=== PATIENT | female | born 1955 | race African-American/Black ===

== ENCOUNTER 2020-10-23 11:48 | Outpatient (CLI) | payer MEDICARE | END 2020-10-23 11:49 | disposition home or self-care (01) | LOC: CSHRAD 11:48 | PROVIDERS: ATTEND Internal Medicine | DX: M25.561 Pain in right knee (principal); M17.11 Unilateral primary osteoarthritis, right knee; M25.761 Osteophyte, right knee ==

== ENCOUNTER 2021-04-19 11:48 | Outpatient (CLI) | payer MEDICARE | END 2021-04-19 11:49 | disposition home or self-care (01) | LOC: CSHMAMMO 11:48 | PROVIDERS: ATTEND Internal Medicine | DX: Z12.31 Encounter for screening mammogram for malignant neoplasm of breast (principal); Z85.820 Personal history of malignant melanoma of skin | CPT/HCPCS: 77063; 77067 ==

== ENCOUNTER 2022-04-20 09:09 | Outpatient (CLI) | payer MEDICARE | END 2022-04-20 09:10 | disposition home or self-care (01) | LOC: CSHMAMMO 09:09 | PROVIDERS: ATTEND Internal Medicine | DX: Z12.31 Encounter for screening mammogram for malignant neoplasm of breast (principal); Z85.820 Personal history of malignant melanoma of skin | CPT/HCPCS: 77063; 77067 ==

== ENCOUNTER 2022-07-18 11:41 | Outpatient (CLI) | payer MEDICARE | END 2022-07-18 11:42 | disposition home or self-care (01) | LOC: CSHRAD 11:41 | PROVIDERS: ATTEND Internal Medicine | DX: M70.62 Trochanteric bursitis, left hip (principal); M54.50 Low back pain, unspecified; M47.816 Spondylosis without myelopathy or radiculopathy, lumbar region; M48.54XD Collapsed vertebra, not elsewhere classified, thoracic region, subsequent encounter for fracture with routine healing | CPT/HCPCS: 72100 ==

== ENCOUNTER 2023-01-03 09:13 | Outpatient (CLI) | payer MEDICARE | END 2023-01-03 09:14 | disposition home or self-care (01) | LOC: CSHULT 09:13 | PROVIDERS: ATTEND Internal Medicine | DX: N18.31 Chronic kidney disease, stage 3a (principal) | CPT/HCPCS: 76770 ==

== ENCOUNTER 2023-04-21 10:53 | Outpatient (CLI) | payer MEDICARE | END 2023-04-21 10:54 | disposition home or self-care (01) | LOC: CSHMAMMO 10:53 | PROVIDERS: ATTEND Internal Medicine | DX: Z12.31 Encounter for screening mammogram for malignant neoplasm of breast (principal); Z85.820 Personal history of malignant melanoma of skin | CPT/HCPCS: 77063; 77067 ==

== ENCOUNTER 2024-06-25 08:02 | Outpatient (CLI) | payer MEDICARE | END 2024-06-25 08:03 | disposition home or self-care (01) | LOC: CSHMAMMO 08:02 | PROVIDERS: ATTEND Nurse Practitioner | DX: Z78.0 Asymptomatic menopausal state (principal); M85.89 Other specified disorders of bone density and structure, multiple sites | CPT/HCPCS: 77080 ==

== ENCOUNTER 2025-05-12 11:59 | Outpatient (CLI) | payer MEDICARE | END 2025-05-12 12:00 | disposition home or self-care (01) | LOC: CSHMAMMO 11:59 | PROVIDERS: ATTEND Internal Medicine | DX: Z12.31 Encounter for screening mammogram for malignant neoplasm of breast (principal); Z85.820 Personal history of malignant melanoma of skin | CPT/HCPCS: 77063; 77067 ==